=== PATIENT | male | born 1965 | race Caucasian/White ===

== ENCOUNTER 2017-08-29 07:30 | Day surgery (SDC) | END 2017-08-30 12:45 | disposition home or self-care (01) ==

== ENCOUNTER → 2018-10-09 | Outpatient (CLI) | payer BC ==
[~2018-10-09] MED LIST: ASPI-817 PO; ATOR40TA68 PO; BENA5TAB33 PO; CLOP75TA28 PO; FURO-110 PO; IOHEXOL 100 ML ONE; METO-407 PO; NITROGLYCERIN AEROSOL (4.9 GM) ONE; RANO10002 PO; SOD CHLORIDE 0.9% 100 ML ONE
== END | disposition home or self-care (01) ==
LOC: C/S 10:12
PROVIDERS: ATTEND Internal Medicine Interventional Cardiology
DX: R94.39 Abnormal result of other cardiovascular function study (principal); R06.02 Shortness of breath
CPT/HCPCS: 75571; 75574; Q9967; Z7610